=== PATIENT | male | born 1990 | race Caucasian/White ===

== ENCOUNTER 2018-06-22 11:51 | Emergency (ER) | payer BC ==
[2018-06-22 12:08] VITALS: BP 149/101
[2018-06-22] MEDS ORDERED: TAMSULOSIN HCL 0.4 MG CAP.SR.24H PO ONE (13:14)
[2018-06-22] MEDS ORDERED: KETOROLAC TROMETHAMINE 60 MG/2 ML SDV IM ONE (13:14)
--- NOTE | 2018-06-22 13:15 | ER Document Report ---
ED GI/ - General Chief Complaint: Abdominal Pain Stated Complaint: SIDE PAIN Time Seen by Provider: 06/22/18 13:08 Mode of Arrival: Ambulatory Information source: Patient Notes: History of Present Illness Time: [ ] Chief Complaint: [flank pain] [ ] History obtained from [patient] 28 years old male presents today with sharp flank and right lower quadrant pain radiating to his right scrotum on and off since this morning. Last couple of weeks he was having mild pain on and off. Denies any dysuria frequency or urgency. Denies any discharges. Denies any nausea vomiting. Denies any fever chills or other constitutional symptoms. Symptoms began: [today] Onset: [gradual] Timing: [intermittent] Quality: [``pain] Intensity: [severe] Location: [flank] Migration: [none] Radiation: [none] Mechanism: [none] Aggravating factors: [none] Relieving factors: [none] Denies significant traumatic injury Denies weakness, numbness, incontinence Denies IV drug use Denies trouble with urination Review of Systems All other systems negative as reviewed. CONSTITUTIONAL No fever. EYES No eye pain. ENT No URI symptoms, No sore throat, No ear pain. CARDIOVASCULAR No chest pain, No palpitations, No edema. RESPIRATORY No Cough, No SOB, No wheezing. GASTROINTESTINAL No abdominal pain, No diarrhea, No vomiting, No constipation, No melena, No rectal bleeding. GENITOURINARY No UTI symptoms, No bleeding. MUSCULOSKELETAL + flank pain. SKIN No Rash. NEUROLOGIC No Headache, No recent seizures, No paralysis, No parathesias. Physical Exam CONSTITUTIONAL Vital signs reviewed, comfortable, Alert and oriented X 3. HEAD Atraumatic, Normal cephalic. EYES No discharge from eyes, Sclera are not injected, Extraocular muscles intact, Conjunctiva are normal. ENT Ears normal to inspection, Nose examination normal, Oropharynx normal, Mucous membranes pink, moist, normal in color. NECK Normal ROM, No jugular venous distention, No meningeal signs, No carotid bruit. RESPIRATORY/CHEST Chest is non-tender, Breath sounds normal, No respiratory distress. CARDIOVASCULAR RRR, Heart sounds normal. ABDOMEN Abdomen is non-tender, No masses, Bowel sounds normal, No distension, No peritoneal signs. BACK Normal inspection. no focal bony tenderness, no CVA tenderness, no soft tissue tenderness, negative straight leg test bilaterally, bilateral 2+ knee deep tendon reflexes. UPPER EXTREMITY Inspection normal, No cyanosis/clubbing/edema, 2+ radial pulses. LOWER EXTREMITY Inspection normal, No cyanosis/clubbing/edema, 2+ femoral pulses. NEURO Motor exam normal, Sensory exam normal. SKIN Skin is warm and dry, No rash. PSYCHIATRIC Normal affect. TRAVEL OUTSIDE OF THE [place] IN LAST 30 DAYS: No - HPI Notes: 06/22/18 13:15 Dictated - Related Data Allergies/Adverse Reactions: No Known Allergies Allergy (Unverified 06/22/18 12:00) Past Medical History - Social History Smoking Status: Never Smoker Chew tobacco use (# tins/day): Yes Frequency of alcohol use: None Drug Abuse: None Family History: Reviewed & Not Pertinent Patient has suicidal ideation: No Patient has homicidal ideation: No Renal/ Medical History: Denies: Hx Peritoneal Dialysis Past Surgical History: Reports: Hx Appendectomy Review of Systems - Review of Systems Notes: Dictated Physical Exam - Vital signs Vitals: Temp Pulse Resp BP Pulse Ox 97.6 F 64 16 149/101 H 98 06/22/18 12:05 06/22/18 12:05 06/22/18 12:05 06/22/18 12:05 06/22/18 12:05 - Notes Notes: Dictated Course - Re-evaluation Re-evalutation: 06/22/18 18:11 He was given IV fluids, pain medications as well as antibiotic. - Vital Signs Vital signs: Temp Pulse Resp BP Pulse Ox 97.6 F 64 16 149/101 H 98 06/22/18 12:05 06/22/18 12:05 06/22/18 12:05 06/22/18 12:05 06/22/18 12:05 - Laboratory Result Diagrams: 06/22/18 17:37 06/22/18 13:25 Laboratory results interpreted by me: 06/22/18 06/22/18 06/22/18 13:05 13:25 13:25 WBC 21.8 H RBC 5.60 H Seg Neutrophils % Seg Neuts % (Manual) 95 H Lymphocytes % Lymphocytes % (Manual) 4 L Monocytes % (Manual) 1 L Absolute Neutrophils Abs Neuts (Manual) 20.7 H Potassium 5.4 H Creatinine 1.35 H Glucose 116 H Calcium 10.4 H Total Protein 8.6 H Albumin 5.1 H Urine Protein 100 H Urine Blood MODERATE H 06/22/18 17:37 WBC 18.5 H RBC Seg Neutrophils % 88.1 H Seg Neuts % (Manual) Lymphocytes % 7.3 L Lymphocytes % (Manual) Monocytes % (Manual) Absolute Neutrophils 16.3 H Abs Neuts (Manual) Potassium Creatinine Glucose Calcium Total Protein Albumin Urine Protein Urine Blood - Diagnostic Test Radiology reviewed: Reports reviewed - Radiologist report as right ureteric stone at the UV junction 3 mm. With hydronephrosis mild to moderate Discharge - Discharge Clinical Impression: Ureteric stone Hydronephrosis Qualifiers: Hydronephrosis type: with renal calculous obstruction Qualified Code(s): N13.2 - Hydronephrosis with renal and ureteral calculous obstruction Leukocytosis Qualifiers: Leukocytosis type: other Qualified Code(s): D72.828 - Other elevated white blood cell count Condition: Fair Disposition: HOME, SELF-CARE Instructions: Kidney Stone ([facility]) Additional Instructions: Kidney Stone You are passing or have passed a kidney stone. These stones are usually due to increased calcium or uric acid concentrations in your urine. Stones within the kidney itself are not painful. The pain occurs as the stone leaves the kidney to pass down the long tube, called the ureter, leading to the bladder. If the stone is small, it will usually pass by itself. Most patients can pass the stone at home. You will usually receive medications for pain, nausea or vomiting, and sometimes a medication to assist in passing the kidney stone. However, if the pain is very severe or if vomiting prevents you from taking oral pain medications, you may need to return for further treatment. Drink three or four quarts of fluids per day. You will be given pain medication (if needed) and urine strainers. Strain all your urine to see if the stone passes. If your doctor has asked you to bring the stone in for analysis, return with the stone once it has passed. Return if pain or vomiting become severe, if you develop a high fever, if you are unable to pass your urine, or if other unusual symptoms occur. Please follow-up with physical science aide early as possible Prescriptions: Ondansetron [Zofran Odt 4 mg Tablet] 1 - 2 tab PO Q4H PRN #15 tab.rapdis PRN Reason: For Nausea/Vomiting Oxycodone HCl/Acetaminophen [Percocet 5-325 mg Tablet] 1 - 2 tab PO Q4H PRN #15 tablet PRN Reason: Tamsulosin HCl [Flomax 0.4 mg Cap.sr] 0.4 mg PO DAILY #14 cap.sr.24h Referrals: MAURI CHIANG MD [Primary Care Provider] - Follow up as needed
[2018-06-22 13:35] LABS: AMORPHOUS SEDIMENT,URINE 1+ /HPF; APPEARANCE,URINE TURBID; BILIRUBIN,URINE NEGATIVE (NEGATIVE); COLOR,URINE YELLOW; GLUCOSE, URINE NEGATIVE (NEGATIVE); KETONES,URINE NEGATIVE (NEGATIVE); LEUKOCYTE ESTERASE,URINE NEGATIVE (NEGATIVE); NITRITE,URINE NEGATIVE (NEGATIVE); PROTEIN,URINE 100 mg/dL (NEGATIVE); URINE SPECIFIC GRAVITY 1.041; UROBILINOGEN,URINE NEGATIVE mg/dL (<2.0)
[2018-06-22 13:45] LABS: HEMATOCRIT 47.1 % (37.9-51.0); HEMOGLOBIN 16.4 g/dL (13.5-17.0); MEAN CORPUSCULAR HEMOGLOBIN 29.3 pg (27.0-33.4); MEAN CORPUSCULAR HGB CONC 34.8 g/dL (32.0-36.0); MEAN CORPUSCULAR VOLUME 84 fl (80-97); PLATELET COUNT 316 10^3/uL (150-450); RED CELL DISTRIBUTION WIDTH 13.1 % (11.5-14.0); WHITE BLOOD COUNT 21.8 10^3/uL (4.0-10.5)
[2018-06-22 13:58] LABS: ALANINE AMINOTRANSFERASE 47 U/L (21-72); ALBUMIN 5.1 g/dL (3.5-5.0); ALKALINE PHOSPHATASE 74 U/L (38-126); ANION GAP 15 (5-19); ASPARTATE AMINO TRANSFERASE 47 U/L (17-59); BILIRUBIN,DIRECT 0.4 mg/dL (0.0-0.4); BILIRUBIN,TOTAL 0.9 mg/dL (0.2-1.3); BLOOD UREA NITROGEN 20 mg/dL (7-20); CALCIUM 10.4 mg/dL (8.4-10.2); CARBON DIOXIDE 29 mmol/L (22-30); CHLORIDE 99 mmol/L (98-107); GLUCOSE 116 mg/dL (75-110); POTASSIUM 5.4 mmol/L (3.6-5.0); SODIUM 142.5 mmol/L (137-145); TOTAL PROTEIN 8.6 g/dL (6.3-8.2)
[2018-06-22 14:18] LABS: ABSOLUTE LYMPHOCYTES# (MANUAL) 0.9 10^3/uL (0.5-4.7); ABSOLUTE MONOCYTES # (MANUAL) 0.2 10^3/uL (0.1-1.4); ABSOLUTE NEUTROPHILS# (MANUAL) 20.7 10^3/uL (1.7-8.2); BASOPHILS % (MANUAL) 0 % (0-2); EOSINOPHILS % (MANUAL) 0 % (0-6); LYMPHOCYTES % (MANUAL) 4 % (13-45); MONOCYTES % (MANUAL) 1 % (3-13); SEGMENTED NEUTROPHILS % (MAN) 95 % (42-78); TOTAL CELLS COUNTED 100
[2018-06-22 14:19] LABS: PLATELET COMMENT ADEQUATE; RBC MORPHOLOGY COMMENT NORMO-CYTIC/CHROMIC
[2018-06-22] MEDS ORDERED: NORMAL SALINE 1000 ML 1,000 ML IV ONE (14:19)
[2018-06-22] MEDS ORDERED: NORMAL SALINE 1000 ML 1,000 ML IV PRN (14:19)
[2018-06-22] MEDS ORDERED: CEFTRIAXONE 1 GM/D5W RTU 1 GM/50 ML RTUPB IV ONE (14:35)
--- NOTE | 2018-06-22 15:30 | RADIOLOGY REPORT (SQ) ---
EXAM DESCRIPTION: CT ABD/PELVIS WITH IV ORAL COMPLETED DATE/TIME: 06/22/2018 3:04 pm REASON FOR STUDY: RLQ pain-rule out appendicitis/stone right lower quadrant pain COMPARISON: None. TECHNIQUE: CT scan of the abdomen and pelvis performed using helical scanning technique with dynamic intravenous contrast injection. No oral contrast. Images reviewed with lung, soft tissue, and bone windows. Reconstructed coronal and sagittal MPR images reviewed. Delayed images for evaluation of the urinary system also acquired. All images stored on PACS. All CT scanners at this facility use dose modulation, iterative reconstruction, and/or weight based d osing when appropriate to reduce radiation dose to as low as reasonably achievable (ALARA). [facility]: Dose Right [facility]: CareDose [facility]: Dose Right [facility]: Teradose 4D [facility]: PresenceID CONTRAST TYPE AND DOSE: contrast/concentration: Isovue 350.00 mg/ml; Total Contrast Delivered: 100.0 ml; Total Saline Delivered: 72.0 ml RENAL FUNCTION: Creatinine 1.4 RADIATION DOSE: CT Rad equipment meets quality standard of care and radiation dose reduction techniq ues were employed. CTDIvol: 11.0 - 15.4 mGy. DLP: 1480 mGy-cm.. LIMITATIONS: None. FINDINGS: A 2 mm distal right ureteral calculus is present at the ureterovesical junction on coronal image 42 and axial image 87. This causes mild to moderate right hydronephrosis and hydroureter. Th ere is depressed right renal function, with a persistent dense nephrogram on the delayed imaging david cating right urinary outflow obstruction. Right kidney is normal in size, no cysts or masses. 2 mm right midpole intrarenal nonobstructive cornelio culus axial image 42. Patient is post appendectomy. LOWER CHEST: No significant findings. No nodules or infiltrates. LIVER: Normal size. No masses. No dilated ducts. SPLEEN: Normal size. No focal lesions. PANCREAS: No masses. No significant calcifications. No adjacent inflammation or peripancreatic fluid collections. Pancreatic duct not dilated. GALLBLADDER: No identified stones by CT criteria. No inflammatory changes to suggest cholecystitis. ADRENAL GLANDS: No significant masses or asymmetry. RIGHT KIDNEY AND URETER: As above LEFT KIDNEY AND URETER: No solid masses. No significant calcifications. No hydronephrosis or hydr oureter. AORTA AND VESSELS: No aneurysm. No dissection. Renal arteries, SMA, celiac without stenosis. RETROPERITONEUM: No retroperitoneal adenopathy, hemorrhage or masses. BOWEL AND PERITONEAL CAVITY: No masses or inflammatory changes. No free fluid or peritoneal masses. APPENDIX: Surgically absent PELVIS: No mass. No free fluid. Normal bladder. ABDOMINAL WALL: No masses. No hernias. BONES: No significant or acute findings. OTHER: No other significant finding. IMPRESSION: 2 mm distal right ureteral calculus at the ureterovesical junction, causing mild to mode rate right hydronephrosis and hydroureter, and delayed excretion of contrast into the right collectin g system. Post appendectomy. TECHNICAL DOCUMENTATION: JOB ID: [id number] Quality ID # [id number]: Final reports with documentation of one or more dose reduction techniques (e.g., Au tomated exposure control, adjustment of the mA and/or kV according to patient size, use of iterative reconstruction technique) 2010 [employer]- All Rights Reserved Reading location - IP/workstation name: [email or web address]
[2018-06-22] MEDS ORDERED: FENTANYL CITRATE INJ/PF 100 MCG/2 ML AMPUL IV ONE (16:14)
[2018-06-22] MEDS ORDERED: ONDANSETRON HCL INJ/PF 4 MG/2 ML SDV IV ONE (16:14)
[2018-06-22 18:01] LABS: ABSOLUTE LYMPHOCYTES (AUTO) 1.3 10^3/uL (0.5-4.7); ABSOLUTE MONOCYTES (AUTO) 0.8 10^3/uL (0.1-1.4); ABSOLUTE NEUT (AUTO) 16.3 10^3/uL (1.7-8.2); BASOPHILS % (AUTO) 0.2 % (0-2); HEMATOCRIT 42.6 % (37.9-51.0); HEMOGLOBIN 14.5 g/dL (13.5-17.0); LYMPHOCYTES % (AUTO) 7.3 % (13-45); MEAN CORPUSCULAR HEMOGLOBIN 28.7 pg (27.0-33.4); MEAN CORPUSCULAR VOLUME 84 fl (80-97); MONOCYTES % (AUTO) 4.4 % (3-13); PLATELET COUNT 292 10^3/uL (150-450); RED BLOOD COUNT 5.06 10^6/uL (4.35-5.55); RED CELL DISTRIBUTION WIDTH 13.1 % (11.5-14.0); SEGMENTED NEUTROPHILS % (AUTO) 88.1 % (42-78); TOTAL CELLS COUNTED % (AUTO) 100 %; WHITE BLOOD COUNT 18.5 10^3/uL (4.0-10.5)
== END 2018-06-22 18:40 | disposition home or self-care (01) ==
LOC: ER 11:51
DX: N13.2 Hydronephrosis with renal and ureteral calculous obstruction (principal); D72.829 Elevated white blood cell count, unspecified
CPT/HCPCS: 99284; 96372; 96361; 96375; 96365; 36415; 85025; 80053; 81001; 83605; 74177; J1885; J3010; J2405; J7030; J0696